=== PATIENT | female | born 1995 | race Caucasian/White ===

== ENCOUNTER 2024-09-03 08:09 | Day surgery (SDC) | payer MEDICAID ==
[~2024-09-03] VITALS: Ht 154.9 cm; Wt 51.0 kg
[2024-09-03] VITALS (7 sets, daily range): BP systolic 109–128; BP diastolic 70–89; PULSE 80–111; RESP 11–20; TEMP 98.3; O2SAT 97–100
[~2024-09-03 08:09] MED LIST: BLUEBERRY PO; BUSP15TA7 PO; VENL150C5 PO; [UNRECOGNIZED DRUG - CODE] CONITINF
[2024-09-03] MEDS ORDERED: midazolam 1 mg/ML 2ml injection ONE (09:34)
[2024-09-03] MEDS ORDERED: propofol inj 20 ML IV ONE (09:34)
== END 2024-09-03 10:30 | disposition home or self-care (01) ==
LOC: GI LAB 08:09
PROVIDERS: ATTEND Internal Medicine Gastroenterology
DX: K21.00 Gastro-esophageal reflux disease with esophagitis, without bleeding (principal); R11.15 Cyclical vomiting syndrome unrelated to migraine; K29.50 Unspecified chronic gastritis without bleeding; Z88.1 Allergy status to other antibiotic agents; Z86.73 Personal history of transient ischemic attack (TIA), and cerebral infarction without residual deficits
CPT/HCPCS: 43239; J2250; J2704; J7030; Z7512; A4620